=== PATIENT | male | born 1960 | race Caucasian/White ===

== ENCOUNTER 2016-05-06 10:25 | Emergency (ER) | payer MEDICAID ==
[~2016-05-06] VITALS: Ht 180.3 cm; Wt 83.0 kg
[2016-05-06 10:34] VITALS: BP 129/90
[2016-05-06] MEDS ORDERED: LIDOCAINE 1% HCL (LOCAL ANESTH.) INJ 20ML MDV ONE (12:40)
[2016-05-06] MEDS ORDERED: TETANUS-DIPTH-ACEL PERTUSSIS 0.5ML SYRG IM ONE (13:00)
[2016-05-06] MEDS ORDERED: LIDOCAINE 1% HCL (LOCAL ANESTH.) INJ 20ML MDV IN ONE (13:15)
== END 2016-05-06 13:30 | disposition home or self-care (01) ==
LOC: ER 10:25
DX: S61.412A Laceration without foreign body of left hand, initial encounter (principal); W45.8XXA Other foreign body or object entering through skin, initial encounter; Y93.89 Activity, other specified; Y99.8 Other external cause status; Y92.89 Other specified places as the place of occurrence of the external cause
CPT/HCPCS: 12002; 90471; 90715; 99283; J2001

== ENCOUNTER 2016-05-18 10:11 | Emergency (ER) | payer MEDICAID ==
[~2016-05-18] VITALS: Ht 180.3 cm; Wt 85.3 kg
[2016-05-18 10:19] VITALS: BP 114/75
== END 2016-05-18 11:03 | disposition home or self-care (01) ==
LOC: ER 10:11
DX: S61.012D Laceration without foreign body of left thumb without damage to nail, subsequent encounter (principal); Z48.02 Encounter for removal of sutures